=== PATIENT | male | born 2000 | race Caucasian/White ===

== ENCOUNTER 2024-03-16 02:55 | Emergency (ER) | payer SELFPAY ==
[~2024-03-16] VITALS: Ht 182.9 cm; Wt 83.6 kg
[2024-03-16 03:07] VITALS: BP 143/76; PULSE 80; RESP 14; TEMP 97.7; O2SAT 99
== END 2024-03-16 03:59 ==
LOC: ER 02:56
DX: Z04.1 Encounter for examination and observation following transport accident (principal); V89.0XXA Person injured in unspecified motor-vehicle accident, nontraffic, initial encounter; Y93.89 Activity, other specified; Y92.89 Other specified places as the place of occurrence of the external cause; Y99.8 Other external cause status
CPT/HCPCS: 99283